=== PATIENT | female | born 1980 | race Caucasian/White ===

== ENCOUNTER 2016-08-02 20:43 | Emergency (ER) | payer SELFPAY ==
[~2016-08-02] VITALS: Ht 162.6 cm; Wt 68.2 kg
[~2016-08-02 20:43] MED LIST: AMOXICILLIN 8751 TAB PO; ANUSOL HC CREAM30 GM TP; BIAXIN 500MG T500 MG PO; CARAFATE 1GM1 G PO; CEPHALEXIN500 M1 PO; COLACE 100100 MG/CAP PO; FLAGYL500 MG PO; MOTRIN 600600 MG/TAB PO; MULTI VITAMINS1 TAB PO; NAPROXEN 3375 MG/TAB PO; NIFEREX-150 501 CA1 PO; NO HOME MEDICATIONS; NORCO 325 MG-51 TAB PO; NORCO 325 MG-7.1 TAB PO; PHENERGAN 25 TA25 MG PO; PHENERGAN25 MG RC; PRILOSEC 20MG20 MG PO; REGLAN 10MG10 MG/TAB PO; VITAMINS; ZITHROMAX 250M250 MG PO; ZOFRAN 4MG T4 MG/TAB PO; ZOFRAN ODT4 MG PO
[2016-08-02 20:48] VITALS: BP 117/63; TEMP 98
[2016-08-02] MEDS ORDERED: NORCO 325 MG-51 TAB PO (22:41)
[2016-08-02 22:51] VITALS: PULSE 59
== END 2016-08-02 22:51 | disposition home or self-care (01) ==
LOC: COL.ER 20:43
DX: M26.602 Left temporomandibular joint disorder, unspecified (principal); F17.210 Nicotine dependence, cigarettes, uncomplicated

== ENCOUNTER 2016-09-26 12:42 | Emergency (ER) | payer SELFPAY ==
[~2016-09-26] VITALS: Ht 162.6 cm; Wt 72.7 kg
[2016-09-26 12:44] VITALS: BP 120/57; PULSE 69; TEMP 97.9
[2016-09-26] MEDS ORDERED: MULTI VITAMINS1 TAB PO (12:46)
== END 2016-09-26 13:45 | disposition home or self-care (01) ==
LOC: COL.ER 12:42
DX: M26.602 Left temporomandibular joint disorder, unspecified (principal)

== ENCOUNTER 2016-10-16 15:57 | Emergency (ER) | payer SELFPAY ==
[~2016-10-16] VITALS: Ht 162.6 cm; Wt 71.7 kg
[2016-10-16 16:06] VITALS: BP 111/59; TEMP 97.9
[2016-10-16] MEDS ORDERED: FLEXERIL 1010 MG/TAB PO (17:49)
[2016-10-16 17:52] VITALS: PULSE 52
== END 2016-10-16 17:53 | disposition home or self-care (01) ==
LOC: COL.ER 15:57
DX: M26.602 Left temporomandibular joint disorder, unspecified (principal); F17.210 Nicotine dependence, cigarettes, uncomplicated; Z98.51 Tubal ligation status; Z98.890 Other specified postprocedural states

== ENCOUNTER 2017-06-07 10:54 | Emergency (ER) | payer SELFPAY ==
[~2017-06-07] VITALS: Ht 162.6 cm; Wt 68.6 kg
[~2017-06-07 10:54] MED LIST changes: +FLEXERIL 1010 MG/TAB PO
[2017-06-07 12:00] VITALS: BP 112/54; PULSE 75; TEMP 97.6
== END 2017-06-07 12:44 | disposition home or self-care (01) ==
LOC: COL.ER 10:54
DX: S46.911A Strain of unspecified muscle, fascia and tendon at shoulder and upper arm level, right arm, initial encounter (principal); W00.0XXA Fall on same level due to ice and snow, initial encounter; Y92.410 Unspecified street and highway as the place of occurrence of the external cause

== ENCOUNTER 2017-07-05 22:25 | Emergency (ER) | payer SELFPAY ==
[~2017-07-05] VITALS: Ht 162.6 cm; Wt 68.6 kg
[2017-07-05 22:32] VITALS: TEMP 98.5
[2017-07-05 22:50] LABS: BASO % 0.5 % (0.0-2.0); EOS # 0.1 (0.0-0.7); EOS % 1.3 % (0-4.0); GRAN # 2.8 (1.4-6.5); GRAN % 35.4 % (42.2-75.2); HEMATOCRIT 37.8 % (37.0-47.0); HEMOGLOBIN 12.8 g/dl (12.5-16.0); LYMPH # 4.3 (1.2-3.4); LYMPH % 54.6 % (20.0-51.0); MEAN CELL VOLUME 86 fl (80.0-100.0); MEAN CORPUSCULAR HEMOGLOBIN 29 pg (27.0-31.0); MEAN CORPUSCULAR HGB CONC 34 g/dl (33.0-37.0); MEAN PLATELET VOLUME 9.8 fl (7.4-10.4); MONO # 0.6 (0.1-0.6); MONO % 8.1 % (1.7-9.3); PLATELET COUNT 273 K/mm3 (130-400); RED BLOOD COUNT 4.41 M/mm3 (4.10-5.30); REDCELL DISTRIBUTION WIDTH-CV 12.8 % (11.5-14.5)
[2017-07-05 23:01] LABS: AST,SGOT 19 U/L (15-37); BLOOD UREA NITROGEN 12 mg/dL (7-17); CALCIUM 9.2 mg/dL (8.4-10.2); CARBON DIOXIDE 16 mmol/L (22-30); CHLORIDE 107 mmol/L (98-107); LIPASE 50 U/L (23-300); PHOSPHOROUS 2.7 mg/dL (2.5-4.5); POTASSIUM 3.1 mmol/L (3.4-5.0); TOTAL PROTEIN 7.3 gm/dL (6.4-8.2)
[2017-07-05 23:17] LABS: ALANINE AMINOTRANSFERASE 16 U/L (9-52); ALKALINE PHOSPHATASE 70 U/L (50-136); ANION GAP 16 mmol/L (7-16); BILIRUBIN,TOTAL 0.4 mg/dL (0.0-1.0); CREATININE, serum 0.65 mg/dL (0.52-1.25); GLUCOSE 102 mg/dL (74-106); SODIUM 139 mmol/L (137-145)
[2017-07-05 23:32] LABS: TROPONIN-I < 0.012 ng/mL (0.000-0.034)
[2017-07-05 23:43] LABS: COLLECTION METHOD CLEAN CATCH
[2017-07-06] LABS: PH 6 (5-8); URINE APPEARANCE Clear; URINE BACTERIA None Seen /hpf; URINE BILIRUBIN Negative (NEGATIVE); URINE BLOOD Negative (NEGATIVE); URINE COLOR Yellow; URINE GLUCOSE Negative (NEGATIVE); URINE KETONE 1+ (NEGATIVE); URINE LEUKOCYTE ESTERASE Negative (NEGATIVE); URINE NITRATE Negative (NEGATIVE); URINE PROTEIN(semi-quant) Negative (NEGATIVE); URINE RBC 0-2 /hpf; URINE UROBILINOGEN Negative (NEGATIVE)
[2017-07-06 01:03] VITALS: BP 106/63; PULSE 69
== END 2017-07-06 01:06 | disposition home or self-care (01) ==
LOC: COL.ER 22:25
PROVIDERS: Emergency Medicine
DX: R06.4 Hyperventilation (principal); F17.210 Nicotine dependence, cigarettes, uncomplicated; Z98.51 Tubal ligation status
CPT/HCPCS: J2060; J7030

== ENCOUNTER 2017-08-24 18:15 | Emergency (ER) | payer SELFPAY ==
[~2017-08-24] VITALS: Ht 162.6 cm; Wt 64.5 kg
[2017-08-24 18:21] VITALS: TEMP 97.6
[2017-08-24 18:51] LABS: BASO # 0.1 (0.0-0.2); EOS # 0.1 (0.0-0.7); EOS % 0.9 % (0-4.0); GRAN # 3.6 (1.4-6.5); GRAN % 53.3 % (42.2-75.2); HEMATOCRIT 37.7 % (37.0-47.0); HEMOGLOBIN 12.9 g/dl (12.5-16.0); LYMPH # 2.5 (1.2-3.4); LYMPH % 36.5 % (20.0-51.0); MEAN CELL VOLUME 85 fl (80.0-100.0); MEAN CORPUSCULAR HEMOGLOBIN 29 pg (27.0-31.0); MEAN CORPUSCULAR HGB CONC 34 g/dl (33.0-37.0); MEAN PLATELET VOLUME 9.8 fl (7.4-10.4); MONO # 0.6 (0.1-0.6); MONO % 8.2 % (1.7-9.3); PLATELET COUNT 296 K/mm3 (130-400); RED BLOOD COUNT 4.43 M/mm3 (4.10-5.30); REDCELL DISTRIBUTION WIDTH-CV 12.3 % (11.5-14.5)
[2017-08-24 19:05] LABS: ALANINE AMINOTRANSFERASE 22 U/L (9-52); ALBUMIN 3.8 gm/dL (3.5-5.0); ALKALINE PHOSPHATASE 65 U/L (50-136); ANION GAP 12 mmol/L (7-16); AST,SGOT 17 U/L (15-37); BILIRUBIN,TOTAL 0.4 mg/dL (0.0-1.0); BLOOD UREA NITROGEN 10 mg/dL (7-17); C-REACTIVE PROTEIN < 0.5 mg/dL (0.0-0.9); CALCIUM 9.4 mg/dL (8.4-10.2); CARBON DIOXIDE 20 mmol/L (22-30); CHLORIDE 105 mmol/L (98-107); CREATININE, serum 0.61 mg/dL (0.52-1.25); GLUCOSE 94 mg/dL (74-106); LIPASE 35 U/L (23-300); POTASSIUM 3.3 mmol/L (3.4-5.0); SODIUM 137 mmol/L (137-145); TOTAL PROTEIN 7.4 gm/dL (6.4-8.2)
[2017-08-24 19:13] LABS: TROPONIN-I < 0.012 ng/mL (0.000-0.034)
[2017-08-24 19:58] VITALS: BP 101/56; PULSE 65
== END 2017-08-24 19:58 | disposition home or self-care (01) ==
LOC: COL.ER 18:15
PROVIDERS: Emergency Medicine
DX: R07.9 Chest pain, unspecified (principal); R20.2 Paresthesia of skin; F41.9 Anxiety disorder, unspecified; F17.210 Nicotine dependence, cigarettes, uncomplicated

== ENCOUNTER 2017-08-27 11:51 | Emergency (ER) | payer SELFPAY ==
[~2017-08-27] VITALS: Ht 162.6 cm; Wt 64.5 kg
[2017-08-27 11:53] VITALS: TEMP 98.6
[2017-08-27 12:53] LABS: BASO % 0.7 % (0.0-2.0); EOS # 0.1 (0.0-0.7); EOS % 1.2 % (0-4.0); GRAN # 3.2 (1.4-6.5); GRAN % 55.4 % (42.2-75.2); HEMATOCRIT 37.2 % (37.0-47.0); HEMOGLOBIN 12.4 g/dl (12.5-16.0); LYMPH % 33.4 % (20.0-51.0); MEAN CELL VOLUME 84 fl (80.0-100.0); MEAN CORPUSCULAR HEMOGLOBIN 28 pg (27.0-31.0); MEAN CORPUSCULAR HGB CONC 33 g/dl (33.0-37.0); MEAN PLATELET VOLUME 10.2 fl (7.4-10.4); MONO # 0.5 (0.1-0.6); MONO % 9.1 % (1.7-9.3); PLATELET COUNT 288 K/mm3 (130-400); RED BLOOD COUNT 4.43 M/mm3 (4.10-5.30); REDCELL DISTRIBUTION WIDTH-CV 12.3 % (11.5-14.5)
[2017-08-27 13:11] LABS: ALANINE AMINOTRANSFERASE 18 U/L (9-52); ALBUMIN 3.9 gm/dL (3.5-5.0); ALKALINE PHOSPHATASE 62 U/L (50-136); ANION GAP 12 mmol/L (7-16); AST,SGOT 29 U/L (15-37); BILIRUBIN,TOTAL 0.5 mg/dL (0.0-1.0); BLOOD UREA NITROGEN 9 mg/dL (7-17); CALCIUM 9.3 mg/dL (8.4-10.2); CARBON DIOXIDE 21 mmol/L (22-30); CHLORIDE 106 mmol/L (98-107); CREATININE, serum 0.54 mg/dL (0.52-1.25); GLUCOSE 94 mg/dL (74-106); LIPASE 34 U/L (23-300); POTASSIUM 3.3 mmol/L (3.4-5.0); SODIUM 138 mmol/L (137-145); TOTAL PROTEIN 7.4 gm/dL (6.4-8.2)
[2017-08-27 13:26] LABS: TROPONIN-I < 0.012 ng/mL (0.000-0.034)
[2017-08-27] MEDS ORDERED: EPA FISH OIL1 SGL PO (13:41)
[2017-08-27 14:53] VITALS: BP 106/64; PULSE 57
== END 2017-08-27 15:25 | disposition home or self-care (01) ==
LOC: COL.ER 11:51
PROVIDERS: Emergency Medicine
DX: G43.909 Migraine, unspecified, not intractable, without status migrainosus (principal); F17.210 Nicotine dependence, cigarettes, uncomplicated; F41.9 Anxiety disorder, unspecified; Z98.51 Tubal ligation status
CPT/HCPCS: J1200; J1885; J2550; J7030

== ENCOUNTER 2018-12-14 01:03 | Emergency (ER) | payer SELFPAY ==
[~2018-12-14] VITALS: Ht 162.6 cm; Wt 70.9 kg
[~2018-12-14 01:03] MED LIST changes: +EPA FISH OIL1 SGL PO
[2018-12-14 01:12] VITALS: BP 102/64; TEMP 97
[2018-12-14 01:40] LABS: BASO % 0.5 % (0.0-2.0); EOS # 0.1 (0.0-0.7); EOS % 1.6 % (0-4.0); GRAN # 3.7 (1.4-6.5); GRAN % 49.8 % (42.2-75.2); HEMATOCRIT 39.9 % (37.0-47.0); HEMOGLOBIN 12.8 g/dl (12.5-16.0); LYMPH % 39.2 % (20.0-51.0); MEAN CELL VOLUME 88 fl (80.0-100.0); MEAN CORPUSCULAR HEMOGLOBIN 28 pg (27.0-31.0); MEAN CORPUSCULAR HGB CONC 32 g/dl (33.0-37.0); MEAN PLATELET VOLUME 9.7 fl (7.4-10.4); MONO # 0.7 (0.1-0.6); MONO % 8.6 % (1.7-9.3); PLATELET COUNT 277 K/mm3 (130-400); RED BLOOD COUNT 4.53 M/mm3 (4.10-5.30); REDCELL DISTRIBUTION WIDTH-CV 13.3 % (11.5-14.5)
[2018-12-14 01:51] LABS: CALCIUM 8.6 mg/dL (8.4-10.2); CREATININE, serum 0.71 (0.52-1.25); POTASSIUM 3.8 mmol/L (3.4-5.0)
[2018-12-14] MEDS ORDERED: IMITREX50 MG PO (03:33)
[2018-12-14 03:45] VITALS: PULSE 66
== END 2018-12-14 03:45 | disposition home or self-care (01) ==
LOC: COL.ER 01:03
PROVIDERS: Physician Assistant
DX: G43.909 Migraine, unspecified, not intractable, without status migrainosus (principal)
CPT/HCPCS: J1200; J1885; J2550; J7030

== ENCOUNTER 2019-01-29 15:07 | Emergency (ER) | payer SELFPAY ==
[~2019-01-29] VITALS: Ht 162.6 cm; Wt 71.4 kg
[~2019-01-29 15:07] MED LIST changes: +IMITREX50 MG PO
[2019-01-29 15:28] VITALS: TEMP 98
[2019-01-29 17:30] VITALS: PULSE 67
== END 2019-01-29 17:30 | disposition home or self-care (01) ==
LOC: COL.ER 15:07
DX: G43.909 Migraine, unspecified, not intractable, without status migrainosus (principal); F17.210 Nicotine dependence, cigarettes, uncomplicated

== ENCOUNTER 2019-05-12 10:39 | Emergency (ER) | payer BC ==
[~2019-05-12] VITALS: Ht 162.6 cm; Wt 72.7 kg
[2019-05-12 11:03] VITALS: BP 115/68; TEMP 97.2
[2019-05-12 12:28] VITALS: PULSE 78
== END 2019-05-12 12:30 | disposition home or self-care (01) ==
LOC: COL.ER 10:39
DX: M79.641 Pain in right hand (principal); F17.210 Nicotine dependence, cigarettes, uncomplicated; Z98.890 Other specified postprocedural states

== ENCOUNTER 2019-06-11 15:19 | Emergency (ER) | payer BC ==
[~2019-06-11] VITALS: Ht 162.6 cm; Wt 72.8 kg
[2019-06-11 15:23] VITALS: BP 114/64; PULSE 65; TEMP 98.3
[2019-06-11] MEDS ORDERED: DOXYCYCLINE 10100 MG PO (15:35)
== END 2019-06-11 15:42 | disposition home or self-care (01) ==
LOC: COL.ER 15:19
DX: S40.862A Insect bite (nonvenomous) of left upper arm, initial encounter (principal); L03.114 Cellulitis of left upper limb; F17.210 Nicotine dependence, cigarettes, uncomplicated; Z98.51 Tubal ligation status; W57.XXXA Bitten or stung by nonvenomous insect and other nonvenomous arthropods, initial encounter

== ENCOUNTER → 2020-09-11 | Outpatient (REF) ==
[~2020-09-11] MED LIST changes: +DOXYCYCLINE 10100 MG PO; +FLINTSTONES W/I1 CTB PO; +MOBIC15 MG PO; +MOTRIN 800800 MG/TAB PO
== END ==
LOC: COL.LAB 07:10
DX: Z20.822 Contact with and (suspected) exposure to COVID-19 (principal)

== ENCOUNTER 2020-10-26 06:43 | Emergency (ER) | payer SELFPAY ==
[~2020-10-26] VITALS: Ht 162.6 cm; Wt 83.6 kg
[~2020-10-26 06:43] MED LIST changes: -MOBIC15 MG PO; -MOTRIN 800800 MG/TAB PO
[2020-10-26 06:53] VITALS: BP 110/72; TEMP 98.2
[2020-10-26] MEDS ORDERED: MOBIC15 MG PO (07:51)
[2020-10-26 08:02] VITALS: PULSE 75
== END 2020-10-26 08:02 | disposition home or self-care (01) ==
LOC: COL.ER 06:43
DX: S43.492A Other sprain of left shoulder joint, initial encounter (principal); S43.491A Other sprain of right shoulder joint, initial encounter; F17.210 Nicotine dependence, cigarettes, uncomplicated; X58.XXXA Exposure to other specified factors, initial encounter
CPT/HCPCS: J1100

== ENCOUNTER 2020-11-28 10:57 | Emergency (ER) | payer OTHER ==
[~2020-11-28] VITALS: Ht 162.6 cm; Wt 80.0 kg
[~2020-11-28 10:57] MED LIST changes: +MOBIC15 MG PO
[2020-11-28 10:59] VITALS: TEMP 98.7
[2020-11-28 11:41] LABS: BASO % 0.7 % (0.0-2.0); EOS # 0.1 (0.0-0.7); EOS % 1.9 % (0-4.0); GRAN # 3.1 (1.4-6.5); HEMATOCRIT 38.8 % (37.0-47.0); HEMOGLOBIN 12.9 g/dl (12.5-16.0); LYMPH # 1.8 (1.2-3.4); MEAN CELL VOLUME 86 fl (80.0-100.0); MEAN CORPUSCULAR HEMOGLOBIN 28 pg (27.0-31.0); MEAN CORPUSCULAR HGB CONC 33 g/dl (33.0-37.0); MEAN PLATELET VOLUME 9.7 fl (7.4-10.4); MONO # 0.7 (0.1-0.6); MONO % 12.2 % (1.7-9.3); PLATELET COUNT 302 K/mm3 (130-400); RED BLOOD COUNT 4.54 M/mm3 (4.10-5.30)
[2020-11-28 11:59] LABS: ALANINE AMINOTRANSFERASE 9 U/L (0-55); ALBUMIN 3.5 gm/dL (3.5-5.0); ALKALINE PHOSPHATASE 61 U/L (0-750); ANION GAP 10 mmol/L; AST,SGOT 13 U/L (5-34); BILIRUBIN,TOTAL 0.4 mg/dL (0.2-1.2); BLOOD UREA NITROGEN 10 mg/dL (7-19); CALCIUM 8.9 mg/dL (8.4-10.2); CARBON DIOXIDE 21 mEq/L (22-29); CHLORIDE 109 mmol/L (98-107); CREATININE, serum 0.66 mg/dL (0.57-1.11); GLUCOSE 96 mg/dL (70-99); POTASSIUM 3.9 mmol/L (3.5-4.5); SODIUM 140 mmol/L (136-145); TOTAL PROTEIN 6.9 gm/dL (6.2-8.1)
[2020-11-28 12:07] LABS: TROPONIN-I < 0.010 ng/mL (0.00-0.033)
[2020-11-28] MEDS ORDERED: MOTRIN 800800 MG/TAB PO ×2 (12:43)
[2020-11-28 12:55] VITALS: BP 113/57; PULSE 80
== END 2020-11-28 12:55 | disposition home or self-care (01) ==
LOC: COL.ER 10:57
PROVIDERS: Personal Emergency Response Attendant
DX: S46.812A Strain of other muscles, fascia and tendons at shoulder and upper arm level, left arm, initial encounter (principal); F17.200 Nicotine dependence, unspecified, uncomplicated; X58.XXXA Exposure to other specified factors, initial encounter

== ENCOUNTER 2021-02-12 15:02 | Emergency (ER) | payer SELFPAY ==
[~2021-02-12] VITALS: Ht 162.6 cm; Wt 78.6 kg
[~2021-02-12 15:02] MED LIST changes: +MOTRIN 800800 MG/TAB PO
[2021-02-12 15:30] VITALS: BP 108/73; PULSE 75; TEMP 97.3
[2021-02-12 18:02] LABS: STREP SCREEN NEGATIVE
== END 2021-02-12 18:31 | disposition home or self-care (01) ==
LOC: COL.ER 15:02
PROVIDERS: Nurse Practitioner
DX: J02.9 Acute pharyngitis, unspecified (principal); F17.200 Nicotine dependence, unspecified, uncomplicated

== ENCOUNTER 2021-03-23 07:02 | Emergency (ER) | payer SELFPAY ==
[~2021-03-23] VITALS: Ht 162.6 cm; Wt 78.6 kg
[2021-03-23 07:07] VITALS: TEMP 97.9
[2021-03-23 07:39] LABS: BASO % 0.7 % (0.0-2.0); EOS # 0.1 K/mm3 (0.0-0.7); EOS % 2.6 % (0.0-4.0); GRAN % 54.5 % (42.2-75.2); HEMATOCRIT 38.1 % (37.0-47.0); HEMOGLOBIN 12.6 g/dl (12.5-16.0); LYMPH # 1.8 K/mm3 (1.2-3.4); LYMPH % 32.3 % (20.0-51.0); MEAN CELL VOLUME 85 fl (80.0-100.0); MEAN CORPUSCULAR HEMOGLOBIN 28 pg (27-31); MEAN CORPUSCULAR HGB CONC 33 g/dl (33.0-37.0); MEAN PLATELET VOLUME 9.4 fl (7.4-10.4); MONO # 0.5 K/mm3 (0.1-0.6); MONO % 9.7 % (1.7-9.3); PLATELET COUNT 348 K/mm3 (130-400); RED BLOOD COUNT 4.46 M/mm3 (4.10-5.30); REDCELL DISTRIBUTION WIDTH-CV 12.8 % (11.5-14.5)
[2021-03-23 08:07] LABS: ALBUMIN 3.7 gm/dL (3.5-5.0); BILIRUBIN,TOTAL 0.4 mg/dL (0.2-1.2); CALCIUM 8.4 mg/dL (8.4-10.2); CREATININE, serum 0.62 mg/dL (0.57-1.11); TOTAL PROTEIN 6.5 gm/dL (6.2-8.1)
[2021-03-23 08:10] LABS: PROTHROMBIN TIME 11.4 SECONDS (9.7-12.8)
[2021-03-23 09:54] VITALS: BP 109/62; PULSE 63
== END 2021-03-23 10:10 | disposition home or self-care (01) ==
LOC: COL.ER 07:02
PROVIDERS: Family Medicine
DX: R07.89 Other chest pain (principal); F17.210 Nicotine dependence, cigarettes, uncomplicated; Z20.822 Contact with and (suspected) exposure to COVID-19

== ENCOUNTER 2021-06-10 10:06 | Emergency (ER) | payer OTHER ==
[~2021-06-10] VITALS: Ht 162.6 cm; Wt 76.4 kg
[2021-06-10 10:15] VITALS: TEMP 97.7
[2021-06-10] MEDS ORDERED: NORCO 325 MG-51 TAB PO (11:56)
[2021-06-10 12:24] VITALS: BP 112/60; PULSE 64
== END 2021-06-10 12:27 | disposition home or self-care (01) ==
LOC: COL.ER 10:06
DX: S39.012A Strain of muscle, fascia and tendon of lower back, initial encounter (principal); F17.210 Nicotine dependence, cigarettes, uncomplicated; X50.1XXA Overexertion from prolonged static or awkward postures, initial encounter; Y93.F2 Activity, caregiving, lifting; Y92.59 Other trade areas as the place of occurrence of the external cause; Y99.0 Civilian activity done for income or pay
CPT/HCPCS: J1885

== ENCOUNTER 2021-06-28 07:38 | Emergency (ER) | payer OTHER ==
[~2021-06-28] VITALS: Ht 162.6 cm; Wt 76.8 kg
[2021-06-28 07:54] VITALS: BP 93/58; PULSE 64; TEMP 98.3
== END 2021-06-28 08:33 | disposition home or self-care (01) ==
LOC: COL.ER 07:38
DX: R20.2 Paresthesia of skin (principal)

== ENCOUNTER 2021-07-10 08:33 | Emergency (ER) | payer OTHER ==
[~2021-07-10] VITALS: Ht 162.6 cm; Wt 75.0 kg
[2021-07-10 08:57] VITALS: TEMP 98.2
[2021-07-10 10:48] VITALS: BP 125/75; PULSE 90
== END 2021-07-10 10:50 | disposition home or self-care (01) ==
LOC: COL.ER 08:33
DX: U07.1 COVID-19 (principal); R51.9 Headache, unspecified
CPT/HCPCS: J1200; J2765; J7030

== ENCOUNTER 2021-11-09 11:59 | Emergency (ER) | payer SELFPAY ==
[~2021-11-09] VITALS: Ht 162.6 cm; Wt 76.4 kg
[2021-11-09 12:07] VITALS: TEMP 98.2
[2021-11-09 13:40] VITALS: BP 105/66; PULSE 94
== END 2021-11-09 13:40 | disposition home or self-care (01) ==
LOC: COL.ER 11:59
DX: B34.9 Viral infection, unspecified (principal); I49.3 Ventricular premature depolarization; F17.210 Nicotine dependence, cigarettes, uncomplicated; Z20.822 Contact with and (suspected) exposure to COVID-19

== ENCOUNTER 2021-11-20 08:43 | Emergency (ER) | payer SELFPAY ==
[~2021-11-20] VITALS: Ht 162.6 cm; Wt 73.6 kg
[2021-11-20 08:52] VITALS: TEMP 97.9
[2021-11-20] MEDS ORDERED: ANTIVERT 12.512.5 MG PO (10:55)
[2021-11-20 11:01] VITALS: BP 104/52; PULSE 60
== END 2021-11-20 11:05 | disposition home or self-care (01) ==
LOC: COL.ER 08:43
DX: Z00.00 Encounter for general adult medical examination without abnormal findings (principal)

== ENCOUNTER 2022-05-04 11:02 | Emergency (ER) | payer OTHER ==
[~2022-05-04] VITALS: Ht 162.6 cm; Wt 76.4 kg
[~2022-05-04 11:02] MED LIST changes: +ANTIVERT 12.512.5 MG PO; +ATARAX 25MG25 MG/TAB PO
[2022-05-04 11:08] VITALS: TEMP 97.8
[2022-05-04 11:44] LABS: BASO # 0.1 K/mm3 (0.0-0.2); BASO % 0.6 % (0.0-2.0); EOS # 0.1 K/mm3 (0.0-0.7); EOS % 1.4 % (0.0-4.0); GRAN # 5.2 K/mm3 (1.4-6.5); HEMATOCRIT 40.9 % (37.0-47.0); HEMOGLOBIN 13.8 g/dl (12.5-16.0); LYMPH # 1.8 K/mm3 (1.2-3.4); LYMPH % 23.5 % (20.0-51.0); MEAN CELL VOLUME 85 fl (80.0-100.0); MEAN CORPUSCULAR HEMOGLOBIN 29 pg (27-31); MEAN CORPUSCULAR HGB CONC 34 g/dl (33.0-37.0); MEAN PLATELET VOLUME 9.7 fl (7.4-10.4); MONO # 0.6 K/mm3 (0.1-0.6); MONO % 7.2 % (1.7-9.3); PLATELET COUNT 304 K/mm3 (130-400); REDCELL DISTRIBUTION WIDTH-CV 12.8 % (11.5-14.5)
[2022-05-04 11:49] LABS: COLLECTION METHOD CLEAN CATCH
[2022-05-04 11:59] LABS: ALBUMIN 3.7 gm/dL (3.5-5.0); BILIRUBIN,TOTAL 0.3 mg/dL (0.2-1.2); CREATININE, serum 0.67 mg/dL (0.57-1.11); POTASSIUM 3.9 mmol/L (3.5-4.5); TOTAL PROTEIN 7.1 gm/dL (6.2-8.1)
[2022-05-04 12:22] LABS: MUCOUS Present (NOT PRESENT); URINE BACTERIA Rare /hpf (NONE SEEN)
[2022-05-04 12:23] LABS: URINE APPEARANCE Hazy (CLEAR/HAZY); URINE BLOOD 3+ (NEGATIVE); URINE COLOR Amber (YELLOW); URINE GLUCOSE Negative (NEGATIVE); URINE KETONE Negative (NEGATIVE); URINE NITRATE Negative (NEGATIVE); URINE PROTEIN(semi-quant) 2+ (NEGATIVE); URINE UROBILINOGEN 0.2 E.U/dL (0.2-1.0)
[2022-05-04 13:03] VITALS: BP 93/65; PULSE 63
== END 2022-05-04 13:03 | disposition home or self-care (01) ==
LOC: COL.ER 11:02
PROVIDERS: Nurse Practitioner
DX: N92.0 Excessive and frequent menstruation with regular cycle (principal); R42 Dizziness and giddiness; F17.200 Nicotine dependence, unspecified, uncomplicated
CPT/HCPCS: J1885; J7030

== ENCOUNTER 2023-05-06 12:37 | Emergency (ER) | payer OTHER ==
[~2023-05-06] VITALS: Ht 162.6 cm; Wt 78.2 kg
[~2023-05-06 12:37] MED LIST changes: +FLOMAX 0.40.4 MG/CAP PO
[2023-05-06 12:44] VITALS: TEMP 98.2
[2023-05-06 13:06] LABS: BASO % 0.5 % (0.0-2.0); EOS # 0.1 K/mm3 (0.0-0.7); EOS % 1.4 % (0.0-4.0); GRAN # 4.4 K/mm3 (1.4-6.5); GRAN % 59.9 % (42.2-75.2); HEMATOCRIT 40.4 % (37.0-47.0); HEMOGLOBIN 13.3 g/dl (12.5-16.0); LYMPH # 2.2 K/mm3 (1.2-3.4); LYMPH % 30.3 % (20.0-51.0); MEAN CELL VOLUME 85 fl (80.0-100.0); MEAN CORPUSCULAR HEMOGLOBIN 28 pg (27-31); MEAN CORPUSCULAR HGB CONC 33 g/dl (33.0-37.0); MEAN PLATELET VOLUME 9.5 fl (7.4-10.4); MONO # 0.6 K/mm3 (0.1-0.6); MONO % 7.8 % (1.7-9.3); PLATELET COUNT 338 K/mm3 (130-400); RED BLOOD COUNT 4.73 M/mm3 (4.10-5.30); REDCELL DISTRIBUTION WIDTH-CV 13.5 % (11.5-14.5)
[2023-05-06 13:12] LABS: INR 1.1 (0.8-3.0); PROTHROMBIN TIME 11.6 SECONDS (9.7-12.8)
[2023-05-06 13:15] LABS: PARTIAL THROMBOPLASTIN TIME 31.9 SECONDS (26.0-37.0)
[2023-05-06 13:21] LABS: ALANINE AMINOTRANSFERASE 9 U/L (0-55); ALBUMIN 3.6 gm/dL (3.5-5.0); ALKALINE PHOSPHATASE 71 U/L (40-150); ANION GAP 9 mmol/L (7-16); AST,SGOT 15 U/L (5-34); BILIRUBIN,TOTAL 0.6 mg/dL (0.2-1.2); BLOOD UREA NITROGEN 7 mg/dL (7-19); CALCIUM 9.3 mg/dL (8.4-10.2); CARBON DIOXIDE 19 mmol/L (22-29); CHLORIDE 109 mmol/L (98-107); GLUCOSE 106 mg/dL (70-99); MAGNESIUM 1.9 mg/dL (1.6-2.6); POTASSIUM 3.7 mmol/L (3.5-4.5); SODIUM 137 mmol/L (136-145)
[2023-05-06 13:30] LABS: TROPONIN-I < 0.010 ng/mL (0.00-0.033)
[2023-05-06 13:43] LABS: CREATININE, serum 0.63 mg/dL (0.57-1.11)
[2023-05-06 14:23] VITALS: BP 93/58; PULSE 63
== END 2023-05-06 14:31 | disposition home or self-care (01) ==
LOC: COL.ER 12:37
PROVIDERS: Family Medicine
DX: R07.89 Other chest pain (principal)

== ENCOUNTER 2023-11-09 19:37 | Emergency (ER) | payer OTHER ==
[~2023-11-09] VITALS: Ht 162.6 cm; Wt 80.9 kg
[2023-11-09 19:52] VITALS: BP 102/64; PULSE 80; TEMP 98.6
[2023-11-09] MEDS ORDERED: Morphine 4 MG/ML VIAL IV ONE (20:45)
[2023-11-09] MEDS ORDERED: Ketorolac 30 MG/ML VIAL IV ONE (21:00)
[2023-11-09 21:01] LABS: BASO # 0.1 K/mm3 (0.0-0.2); BASO % 0.6 % (0.0-2.0); EOS # 0.2 K/mm3 (0.0-0.7); EOS % 1.9 % (0.0-4.0); GRAN # 3.5 K/mm3 (1.4-6.5); GRAN % 45.2 % (42.2-75.2); HEMATOCRIT 37.6 % (37.0-47.0); HEMOGLOBIN 12.1 g/dl (12.5-16.0); LYMPH # 3.2 K/mm3 (1.2-3.4); LYMPH % 41.1 % (20.0-51.0); MEAN CELL VOLUME 85 fl (80.0-100.0); MEAN CORPUSCULAR HEMOGLOBIN 27 pg (27-31); MEAN CORPUSCULAR HGB CONC 32 g/dl (33.0-37.0); MEAN PLATELET VOLUME 9.5 fl (7.4-10.4); MONO # 0.9 K/mm3 (0.1-0.6); MONO % 11.1 % (1.7-9.3); PLATELET COUNT 320 K/mm3 (130-400); RED BLOOD COUNT 4.42 M/mm3 (4.10-5.30); REDCELL DISTRIBUTION WIDTH-CV 13.2 % (11.5-14.5)
[2023-11-09 21:09] LABS: COLLECTION METHOD CLEAN CATCH
[2023-11-09 21:22] LABS: URINE APPEARANCE CLEAR (CLEAR/HAZY); URINE BLOOD TRACE (NEGATIVE); URINE COLOR YELLOW (YELLOW); URINE GLUCOSE NEGATIVE (NEGATIVE); URINE KETONE NEGATIVE (NEGATIVE); URINE NITRATE NEGATIVE (NEGATIVE); URINE PROTEIN(semi-quant) NEGATIVE (NEGATIVE)
[2023-11-09 21:23] LABS: ALBUMIN 3.5 g/dL (3.5-5.0); BILIRUBIN,TOTAL 0.2 mg/dL (0.2-1.2); C-REACTIVE PROTEIN 0.37 mg/dL (0.00-0.50); CALCIUM 8.8 mg/dL (8.4-10.2); CREATININE, serum 0.66 mg/dL (0.57-1.11); POTASSIUM 3.4 mEq/L (3.5-4.5); TOTAL PROTEIN 6.5 g/dl (6.2-8.1)
[2023-11-09] MEDS ORDERED: Iohexol 300 - 100 ML VIAL IV ONE (22:11)
[2023-11-09] MEDS ORDERED: NS 50 ML IV ONE (22:12)
== END 2023-11-10 00:06 | disposition home or self-care (01) ==
LOC: COL.ER 19:37
PROVIDERS: Nurse Practitioner
DX: R16.1 Splenomegaly, not elsewhere classified (principal)
CPT/HCPCS: J1885; Q9967

== ENCOUNTER → 2023-11-10 | Outpatient (CLI) | payer OTHER | LOC: COL.RAD 06:06 | DX: D73.4 Cyst of spleen (principal) ==

== ENCOUNTER 2023-12-09 12:20 | Emergency (ER) | payer OTHER ==
[~2023-12-09] VITALS: Ht 162.6 cm; Wt 83.6 kg
[2023-12-09 12:25] VITALS: TEMP 98.5
[2023-12-09 13:06] LABS: BASO # 0.1 K/mm3 (0.0-0.2); BASO % 0.8 % (0.0-2.0); EOS # 0.1 K/mm3 (0.0-0.7); GRAN # 4.5 K/mm3 (1.4-6.5); GRAN % 57.7 % (42.2-75.2); HEMATOCRIT 39.2 % (37.0-47.0); LYMPH # 2.6 K/mm3 (1.2-3.4); LYMPH % 32.9 % (20.0-51.0); MEAN CELL VOLUME 84 fl (80.0-100.0); MEAN CORPUSCULAR HEMOGLOBIN 28 pg (27-31); MEAN CORPUSCULAR HGB CONC 33 g/dl (33.0-37.0); MEAN PLATELET VOLUME 9.5 fl (7.4-10.4); MONO # 0.6 K/mm3 (0.1-0.6); MONO % 7.3 % (1.7-9.3); PLATELET COUNT 350 K/mm3 (130-400); RED BLOOD COUNT 4.67 M/mm3 (4.10-5.30); REDCELL DISTRIBUTION WIDTH-CV 14.1 % (11.5-14.5)
[2023-12-09 13:25] LABS: ALBUMIN 3.6 g/dL (3.5-5.0); BILIRUBIN,TOTAL 0.4 mg/dL (0.2-1.2); CALCIUM 8.8 mg/dL (8.4-10.2); CREATININE, serum 0.64 mg/dL (0.57-1.11); POTASSIUM 3.6 mEq/L (3.5-4.5)
[2023-12-09 13:25] LABS: COLLECTION METHOD CLEAN CATCH
[2023-12-09 13:47] LABS: URINE APPEARANCE CLOUDY (CLEAR/HAZY); URINE BLOOD NEGATIVE (NEGATIVE); URINE COLOR YELLOW (YELLOW); URINE GLUCOSE NEGATIVE (NEGATIVE); URINE KETONE NEGATIVE (NEGATIVE); URINE NITRATE NEGATIVE (NEGATIVE); URINE PROTEIN(semi-quant) NEGATIVE (NEGATIVE); URINE UROBILINOGEN 0.2 E.U/dL (0.2-1.0)
[2023-12-09] MEDS ORDERED: Iohexol 300 - 100 ML VIAL IV ONE (14:30)
[2023-12-09] MEDS ORDERED: NS 100 ML IV SCH (14:31)
[2023-12-09 16:21] VITALS: BP 108/68; PULSE 69
== END 2023-12-09 16:21 | disposition home or self-care (01) ==
LOC: COL.ER 12:20
PROVIDERS: Nurse Practitioner
DX: R07.89 Other chest pain (principal); K21.9 Gastro-esophageal reflux disease without esophagitis; F17.290 Nicotine dependence, other tobacco product, uncomplicated; Z79.899 Other long term (current) drug therapy
CPT/HCPCS: Q9967